=== PATIENT | female | born 1970 | race Caucasian/White ===

== ENCOUNTER 2020-12-25 14:55 | Emergency (ER) | payer OTHER ==
[2020-12-25 17:28] LABS: BILIRUBIN NEGATIVE (NEGATIVE); BLOOD TRACE-LYSED Ery/uL (NEGATIVE); CLARITY CLEAR (CLEAR); COLOR YELLOW (YELLOW); GLUCOSE (U) NORMAL (NORMAL); LEUKOCYTES TRACE Leu/uL (NEGATIVE); NITRITE NEGATIVE (NEGATIVE); PROTEIN NEGATIVE (NEGATIVE); SPECIFIC GRAVITY 1.015 (1.001-1.030); UROBILINOGEN 0.2 mg/dL (0.2-1.0); pH 6.5 (5.0-9.0)
[2020-12-25 17:30] LABS: MARIJUANA (THC) POSITIVE (NEGATIVE)
[2020-12-25 17:31] LABS: AMPHETAMINES NEGATIVE (NEGATIVE); BARBITURATES NEGATIVE (NEGATIVE); ECSTASY (MDMA) NEGATIVE (NEGATIVE); METHADONE NEGATIVE (NEGATIVE); OPIATES NEGATIVE (NEGATIVE); OXYCODONE NEGATIVE (NEGATIVE)
[2020-12-25 17:41] LABS: URINARY WBC RARE
[2020-12-25 17:42] LABS: BACTERIA TRACE
[2020-12-25 17:50] LABS: BASOPHIL 0.7 % (0-2); EOSINOPHIL 0.5 % (0-5); HCT 43.3 % (37.0-47.0); HGB 14.8 g/dl (12.5-16.0); LYMPHOCYTE 14.5 % (15-48); MCH 31.8 pg (25.0-31.0); MCHC 34.2 g/dL (32.0-36.0); MCV 93.1 fL (78.0-100.0); MONOCYTE 4.3 % (0-12); MPV 11.2 fL (6.0-9.5); NEUTROPHIL 79.6 % (41-80); NRBC 0; PLT 348 K/uL (150-400); RBC 4.65 M/uL (4.20-5.40); WBC 15.3 K/uL (4.0-10.5)
[2020-12-25 18:13] LABS: BAND 8 % (0-10); LYMPHOCYTE(M) 12 % (15-48); MONOCYTE(M) 2 % (0-12); NEUTROPHILS(M) 78 % (41-80); PLATELET ESTIMATE NORMAL; PLATELET MORPHOLOGY NORMAL; TOTAL CELL COUNT 100
[2020-12-25 18:16] LABS: ALBUMIN 4.4 g/dL (3.4-5.0); BILIRUBIN - TOTAL 0.7 mg/dL (0.2-1.0); BUN/CREAT RATIO (CALC) 23.4 RATIO; CREATININE 0.64 mg/dL (0.51-0.95); TOTAL PROTEIN 8.4 g/dL (6.4-8.2)
[2020-12-25 18:25] LABS: CKMB 1.6 ng/mL (0.0-3.6)
== END 2020-12-25 21:02 | disposition home or self-care (01) ==
LOC: FER 14:55
PROVIDERS: Nurse Practitioner
DX: F33.1 Major depressive disorder, recurrent, moderate (principal); F17.210 Nicotine dependence, cigarettes, uncomplicated; Z20.822 Contact with and (suspected) exposure to COVID-19; Z87.09 Personal history of other diseases of the respiratory system
CPT/HCPCS: 36415; 71045; 80053; 80305; 81001; 82553; 84484; 93005; U0002

== ENCOUNTER 2021-12-04 06:47 | Emergency (ER) | payer OTHER ==
[~2021-12-04] VITALS: Ht 165.1 cm; Wt 59.0 kg
[2021-12-04 07:03] LABS: BASOPHIL 1.3 % (0-2); EOSINOPHIL 3.5 % (0-5); HCT 43.8 % (37.0-47.0); HGB 14.5 g/dl (12.5-16.0); LYMPHOCYTE 25.9 % (15-48); MCH 30.9 pg (25.0-31.0); MCHC 33.1 g/dL (32.0-36.0); MCV 93.2 fL (78.0-100.0); MONOCYTE 7.6 % (0-12); MPV 11.4 fL (6.0-9.5); NEUTROPHIL 61.4 % (41-80); NRBC 0; PLT 295 K/uL (150-400); RDW 12.6 % (11.5-14.0); WBC 12.4 K/uL (4.0-10.5)
[2021-12-04 07:20] LABS: ALBUMIN 4.1 g/dL (3.4-5.0); BILIRUBIN - TOTAL 0.4 mg/dL (0.2-1.0); BUN/CREAT RATIO (CALC) 37.2 RATIO; CREATININE 0.78 mg/dL (0.51-0.95); GLOBULIN (CALCULATION) 3.9 g/dL; POTASSIUM 4.7 mmol/L (3.5-5.1)
[2021-12-04 07:42] LABS: BILIRUBIN NEGATIVE (NEGATIVE); BLOOD 1+ Ery/uL (NEGATIVE); CLARITY CLEAR (CLEAR); COLOR YELLOW (YELLOW); GLUCOSE (U) NORMAL (NORMAL); LEUKOCYTES TRACE Leu/uL (NEGATIVE); NITRITE NEGATIVE (NEGATIVE); PROTEIN NEGATIVE (NEGATIVE); SPECIFIC GRAVITY 1.015 (1.001-1.030); UROBILINOGEN 0.2 mg/dL (0.2-1.0)
[2021-12-04 08:02] LABS: BACTERIA TRACE; URINARY RBC RARE; URINARY WBC RARE
[2021-12-04] MEDS ORDERED: CEPHALEXIN500 MG PO (08:27)
[2021-12-04] MEDS ORDERED: NAPROXEN500 MG PO (08:27)
[2021-12-04] MEDS ORDERED: NORCO 5-325 TA1 EACH PO (08:27)
== END 2021-12-04 09:00 | disposition home or self-care (01) ==
LOC: FER 06:47
PROVIDERS: Emergency Medicine
DX: S39.012A Strain of muscle, fascia and tendon of lower back, initial encounter (principal); R35.0 Frequency of micturition; R31.9 Hematuria, unspecified; J45.909 Unspecified asthma, uncomplicated; F17.200 Nicotine dependence, unspecified, uncomplicated
CPT/HCPCS: 36415; 80053; 81001; 83690; 85025; 87088; 96372; J1040; J1885; J2405; J7030